=== PATIENT | female | born 1935 | race Caucasian/White ===

== ENCOUNTER 2018-04-19 08:59 | Day surgery (SDC) | payer MEDICARE, MEDICAID ==
[~2018-04-19] VITALS: Ht 170.2 cm; Wt 100.0 kg
[2018-04-19] MEDS ORDERED: LEVO50TA8 PO (09:20)
[2018-04-19] MEDS ORDERED: HYDR25TA4 PO (09:22)
[2018-04-19] MEDS ORDERED: METF500T PO (09:23)
[2018-04-19] MEDS ORDERED: METO25TA6 PO (09:23)
[2018-04-19] MEDS ORDERED: POTA-82 PO (09:26)
[2018-04-19] MEDS ORDERED: RANI150T8 PO (09:27)
[2018-04-19] MEDS ORDERED: SIMV40TA PO (09:28)
[2018-04-19] MEDS ORDERED: BRIM5DRO (09:28)
[2018-04-19] MEDS ORDERED: OXYB15TA PO (09:29)
[2018-04-19] MEDS ORDERED: COU3T PO (09:30)
[2018-04-19] MEDS ORDERED: INSU100I31 SQ (09:31)
[2018-04-19] MEDS ORDERED: NITR0.4T48 SL (09:34)
[2018-04-19 09:35] VITALS: BP 192/87
[2018-04-19] MEDS ORDERED: OCTR10VI3 (09:35)
[2018-04-19] MEDS ORDERED: VIT1CAPS27 PO (09:36)
[2018-04-19] MEDS ORDERED: CHOL10002 PO (09:36)
[2018-04-19] MEDS ORDERED: MIDAZolam 5mg/5ml vial ONE (10:16)
[2018-04-19] MEDS ORDERED: fentaNYL/PF 50MCG/1 ML 2ML syringe ONE (10:16)
[2018-04-19] MEDS ORDERED: LIDOcaine Viscous 15ml cup ONE (10:17)
[2018-04-19 10:37] VITALS: BP 147/90
[2018-04-19 10:47] VITALS: BP 164/87
[2018-04-19 10:57] VITALS: BP 160/79
[2018-04-19 11:07] VITALS: BP 167/84
== END 2018-04-19 11:20 | disposition home or self-care (01) ==
LOC: GI LAB 08:59
PROVIDERS: ATTEND Internal Medicine Gastroenterology
DX: K30 Functional dyspepsia (principal); I11.0 Hypertensive heart disease with heart failure; I50.9 Heart failure, unspecified; I25.10 Atherosclerotic heart disease of native coronary artery without angina pectoris; F17.210 Nicotine dependence, cigarettes, uncomplicated; G47.33 Obstructive sleep apnea (adult) (pediatric); K21.9 Gastro-esophageal reflux disease without esophagitis; E03.9 Hypothyroidism, unspecified; E11.9 Type 2 diabetes mellitus without complications; Z87.09 Personal history of other diseases of the respiratory system; Z90.49 Acquired absence of other specified parts of digestive tract; Z87.39 Personal history of other diseases of the musculoskeletal system and connective tissue; Z90.710 Acquired absence of both cervix and uterus; Z79.4 Long term (current) use of insulin; Z95.0 Presence of cardiac pacemaker; Z79.01 Long term (current) use of anticoagulants; Z91.013 Allergy to seafood; Z86.69 Personal history of other diseases of the nervous system and sense organs; Z86.73 Personal history of transient ischemic attack (TIA), and cerebral infarction without residual deficits; Z86.74 Personal history of sudden cardiac arrest; Z95.5 Presence of coronary angioplasty implant and graft; Z86.718 Personal history of other venous thrombosis and embolism; Z79.84 Long term (current) use of oral hypoglycemic drugs; Z88.3 Allergy status to other anti-infective agents; Z88.0 Allergy status to penicillin; Z88.5 Allergy status to narcotic agent; Z88.6 Allergy status to analgesic agent; Z88.4 Allergy status to anesthetic agent; Z98.890 Other specified postprocedural states; Z79.899 Other long term (current) drug therapy; Z88.8 Allergy status to other drugs, medicaments and biological substances
CPT/HCPCS: 43235; J2250; J3010; J7030; 99152; A4620